=== PATIENT | female | born 1995 | race Caucasian/White ===

== ENCOUNTER 2016-08-18 23:16 | Emergency (ER) | payer OTHER ==
[2016-08-19 00:49] VITALS: TEMP 98; BMI 23.6
[2016-08-19] MEDS ORDERED: SODIUM CHLORIDE 1,000 ML IV STA (01:26)
[2016-08-19] MEDS ORDERED: METOCLOPRAMIDE HCL INJECTION 10 MG/2 ML VIAL IVPB ONE (01:26)
[2016-08-19] MEDS ORDERED: METOCLOPRAMIDE HCL INJECTION 10 MG/2 ML VIAL ONE (01:40)
[2016-08-19 01:44] LABS: BASOPHIL 0.4 % (0-2.0); EOSINOPHIL 1.4 % (0-4.5); MCH 26.3 pg (25.7-33.7); MCHC 34.7 g/dl (32.0-36.0); MEAN CELL VOLUME 75.9 fl (80-96); MEAN PLT VOLUME 6.8 fl (7.5-11.1); NEUTROPHILS 73.1 % (42.8-82.8); PLATELET COUNT 287 K/MM3 (134-434); RDW 16.3 % (11.6-15.6); WHITE BLOOD COUNT 7.8 K/mm3 (4.0-10.0)
[2016-08-19 02:06] LABS: ALBUMIN 3.4 g/dl (3.4-5.0); ANION GAP 11 (8-16); BILIRUBIN,TOTAL 0.3 mg/dL (0.2-1.0); CALCIUM 8.4 mg/dL (8.5-10.1); CO2 24 mmol/L (21-32); CREATININE 0.5 mg/dL (0.55-1.02); GLUCOSE,RANDOM 84 mg/dL (74-106); SGOT/AST 8 U/L (15-37); SGPT/ALT 11 U/L (12-78); TOT PROT 6.9 g/dl (6.4-8.2)
--- NOTE | 2016-08-19 02:12 | PDOC ---
History of Present Illness - General Chief Complaint: Nasal Bleeding Stated Complaint: NASAL BLEEDING/16 WKS Time Seen by Provider: 08/19/16 01:13 History Source: Patient Exam Limitations: No Limitations - History of Present Illness Initial Comments: 08/19/16 02:02 21yo Female patient 15 weeks presents to ED c/o vomiting with epistaxis. Patient went to doctor appointment this morning at Dr. Colon's office for routine check up. She states while waiting to be seen, she began vomiting. After her doctors appointment, patient went home ate around 2pm, and shortly after began vomiting again. She states this time it came out her nose and she began bleeding through her nose. Patient stats symptoms subsided until around 10pm when recurrence of prior symptoms occurred. She denies fever, diarrhea, back pain, abd pain, vaginal bleeding, rectal bleeding or any other complaints at this time. Timing/Duration: 4-6 hours Severity: moderate Modifying Factors: worse with: cold therapy, eating, immobilization, medication , movement, rest, other Associated Symptoms: reports: nausea/vomiting Past History - Travel Traveled outside of the country in the last 30 days: No Close contact w/someone who was outside of country & ill: No - Past Medical History Allergies/Adverse Reactions: Allergies Allergy/AdvReac Type Severity Reaction Status Date / Time No Known Allergies Allergy Verified 08/19/16 00:41 Home Medications: Ambulatory Orders Metoclopramide HCl [Reglan -] 10 mg PO Q8H PRN #30 tablet 08/19/16 - Psycho/Social/Smoking Cessation Hx Suicidal Ideation: No Smoking History: Never smoked Have you smoked in the past 12 months: No Information on smoking cessation initiated: No Hx Alcohol Use: No Drug/Substance Use Hx: No Review of Systems - Review of Systems Able to Perform ROS?: Yes Is the patient limited Greek proficient: No Constitutional: No: Chills, Fever, Malaise, Weakness HEENTM: Yes: Nose Bleeding Respiratory: No: Cough, Stridor, Wheezing Cardiac (ROS): No: Chest Pain, Lightheadedness, Palpitations, Syncope, Chest Tightness ABD/GI: Yes: Nausea, Vomiting. No: Constipated, Diarrhea, Poor Appetite, Poor Fluid Intake, Abdominal cramping : No: Burning, Dysuria, Discharge, Flank Pain, Hematuria Musculoskeletal: No: Back Pain All Other Systems: Reviewed and Negative *Physical Exam - Vital Signs Last Vital Signs Temp Pulse Resp BP Pulse Ox 98.0 F 83 20 112/70 100 08/19/16 00:41 08/19/16 00:41 08/19/16 00:41 08/19/16 00:41 08/19/16 00:41 - Physical Exam General Appearance: Yes: Nourished, Appropriately Dressed. No: Apparent Distress, Mild Distress, Moderate Distress, Severe Distress HEENT: positive: EOMI, FAVIOLA, Normal ENT Inspection, Normal Voice, Symmetrical, TMs Normal, Pharynx Normal. negative: Pharyngeal Erythema, Tonsillar Exudate, Tonsillar Erythema, Nasal Congestion, Rhinorrhea, Sinus Tenderness, TM Bulging, TM Dull, TM Erythema Neck: positive: Trachea midline, Normal Thyroid, Supple. negative: Stridor, Lymphadenopathy (R), Lymphadenopathy (L) Respiratory/Chest: positive: Lungs Clear, Normal Breath Sounds. negative: Respiratory Distress, Accessory Muscle Use, Labored Respiration, Rapid RR, Stridor, Wheezing Cardiovascular: positive: Regular Rhythm, Regular Rate. negative: Edema, JVD, Murmur Gastrointestinal/Abdominal: positive: Normal Bowel Sounds, Soft, Distended (15 weeks ). negative: Guarding, Rebound, Tenderness, Hernia Musculoskeletal: positive: Normal Inspection. negative: CVA Tenderness Extremity: positive: Normal Capillary Refill, Normal Inspection, Normal Range of Motion Integumentary: positive: Normal Color, Dry, Warm Neurologic: positive: director volunteer services II-XII NML intact, Fully Oriented, Alert, Normal Mood/ Affect, Normal Response, Motor Strength /5 ED Treatment Course - LABORATORY CBC & Chemistry Diagram: 08/19/16 01:37 08/19/16 01:37 - ADDITIONAL ORDERS Additional order review: 08/19/16 01:37 RBC 4.08 MCV 75.9 L MCHC 34.7 RDW 16.3 H MPV 6.8 L Neutrophils % 73.1 Lymphocytes % 19.6 Monocytes % 5.5 Eosinophils % 1.4 Basophils % 0.4 - Medications Given in the ED: ED Medications Discontinued Medications Generic Name Dose Route Start Last Admin Trade Name Freq PRN Reason Stop Dose Admin Metoclopramide HCl 10 mg 08/19/16 01:26 08/19/16 01:43 Reglan Injection - IVPB 08/19/16 01:27 10 mg ONCE ONE Administration *DC/Admit/Observation/Transfer Diagnosis at time of Disposition: Dehydration during - Discharge Dispostion Disposition: HOME Condition at time of disposition: Improved Admit: No - Prescriptions Prescriptions: Metoclopramide HCl [Reglan -] 10 mg PO Q8H PRN #30 tablet PRN Reason: Nausea - Patient Instructions Printed Discharge Instructions: DI for Dehydration -- Adult Additional Instructions: FOLLOW UP WITH DR. PÉREZ. CALL TO SCHEDULE APPOINTMENT. TAKE MEDICATIONS PRESCRIBED. START WITH SMALL PORTIONS OF FOOD BUT EAT MORE FREQUENTLY. REMEMBER YOU ARE EATING FOR 2 PEOPLE NOW. Print Language: PASHTO - Post Discharge Activity Work/School Note: Back to Work
[2016-08-19 02:21] LABS: ALK PHOS 63 U/L (45-117)
[2016-08-19 02:31] LABS: URINE APPEARANCE CLEAR; URINE BILIRUBIN NEGATIVE (NEGATIVE); URINE BLOOD NEGATIVE (NEGATIVE); URINE COLOR STRAW; URINE GLUCOSE (UA) NEGATIVE (NEGATIVE); URINE KETONE 1+ (NEGATIVE); URINE LEUK ESTERASE NEGATIVE (NEGATIVE); URINE NITRITE NEGATIVE (NEGATIVE); URINE PROTEIN NEGATIVE (NEGATIVE); URINE UROBILINOGEN NEGATIVE E.U./dl (0.2-1.0)
[2016-08-19 03:14] VITALS: BP 126/76; PULSE 79
== END 2016-08-19 03:18 | disposition home or self-care (01) ==
LOC: JER 23:16
PROC: 3E033GC Introduction of Other Therapeutic Substance into Peripheral Vein, Percutaneous Approach (ICD-10-PCS; principal; 2016-08-18)
PROC: 3E0337Z Introduction of Electrolytic and Water Balance Substance into Peripheral Vein, Percutaneous Approach (ICD-10-PCS; 2016-08-18)
DX: O26.892 Other specified pregnancy related conditions, second trimester (principal); E86.0 Dehydration; Z3A.16 16 weeks gestation of pregnancy
CPT/HCPCS: 36415; 80053; 81003; 84702; 85025; 99283-25

== ENCOUNTER 2017-01-29 19:30 | Inpatient (IN) | payer OTHER ==
[2017-01-29 20:41] LABS: BASOPHIL 0.8 % (0-2.0); EOSINOPHIL 0.5 % (0-4.5); MCH 21.1 pg (25.7-33.7); MCHC 32.2 g/dl (32.0-36.0); MEAN CELL VOLUME 65.7 fl (80-96); NEUTROPHILS 69.4 % (42.8-82.8); PLATELET COUNT 212 K/MM3 (134-434); RDW 16.6 % (11.6-15.6); WHITE BLOOD COUNT 6.6 K/mm3 (4.0-10.0)
[2017-01-29 20:54] LABS: INR 0.92 (0.82-1.09); PROTHROMBIN TIME (PATIENT) 10.1 SEC (9.98-11.88)
[2017-01-29 21:04] LABS: ANION GAP 9 (8-16); CALCIUM 8.2 mg/dL (8.5-10.1); CO2 22 mmol/L (21-32); CREATININE 0.8 mg/dL (0.55-1.02); GLUCOSE,RANDOM 103 mg/dL (74-106)
[2017-01-29 21:11] LABS: ACTIVATED PTT 25.4 SECONDS (26.9-34.4)
[2017-01-29 21:12] VITALS: BMI 28.0
[2017-01-29 21:14] LABS: HYPOCHROMIA 2+; MICROCYTOSIS 1+; OVALOCYTE 1+; PLATELET ESTIMATE ADEQUATE (NORMAL); POIKILOCYTOSIS 1+
[2017-01-29] MEDS ORDERED: oxyCODONE HCL 5 MG TABLET PO PRN (21:31)
[2017-01-29] MEDS ORDERED: BENZOCAINE 20% 57 GM BOTTLE TP PRN (21:31)
[2017-01-29] MEDS ORDERED: BENZOCAINE 28 GM HEMORRHOIDAL OINTMENT PR PRN (21:31)
[2017-01-29] MEDS ORDERED: WITCH HAZEL 50% (TUCKS) 40 PAD/JAR PAD TP PRN (21:31)
[2017-01-29] MEDS ORDERED: IBUPROFEN 800 MG/8 ML IJ IVPB PRN ×2 (21:31→21:49)
[2017-01-29] MEDS ORDERED: METHYLERGONOVINE MALEATE 0.2 MG/1 ML AMP IM PRN (21:31)
[2017-01-29] MEDS ORDERED: diphenhydrAMINE HCL 25 MG CAPSULE (FP) PO PRN (21:31)
--- NOTE | 2017-01-29 21:37 | HP ---
Past Medical History - Primary Care Physician PCP:: Agustín Lehman - Admission Chief Complaint: 37 weeks , vaginal bleeding . placenta abruptio History of Present Illness: 21 yo f edc by sono 02/13/17, c/o abdominal pain and vaginal bleeding since 6 pm today, no rom, no clots, fhr cat 2, vaginal bleeding bright red , with contraction every min , consistant with placenta abruptio, advised stat c/s , rba discussed History Source: Patient Limitations to Obtaining History: No Limitations - Past Medical History ...: 1 ...Para: 0 ...Term: 0 ...: 0 ...Spon : 0 ...Induced : 0 ...Multiple Gestation: 0 ...LMP: 05/09/16 ... Weeks Gestation by Dates: 37.6 ...EDC by Dates: 02/13/17 Heme/Onc: Yes: Anemia - Past Surgical History Hx Myomectomy: No Hx Transabdominal Cerclage: No - Smoking History Smoking history: Never smoked Have you smoked in the past 12 months: No - Alcohol/Substance Use Hx Alcohol Use: No - Social History Usual Living Arrangement: Yes: With Spouse History of Recent Travel: Yes Home Medications - Allergies Allergies/Adverse Reactions: Allergies Allergy/AdvReac Type Severity Reaction Status Date / Time No Known Allergies Allergy Verified 08/19/16 00:41 - Home Medications Home Medications: Ambulatory Orders Ferrous Sulfate [Feosol] 325 mg PO DAILY 01/29/17 Review of Systems - Review of Systems Constitutional: reports: Malaise Eyes: reports: No Symptoms HENT: reports: No Symptoms Neck: reports: No Symptoms Cardiovascular: reports: No Symptoms Respiratory: reports: No Symptoms Genitourinary: reports: Vaginal Bleeding Breasts: reports: No Symptoms Reported Musculoskeletal: reports: No Symptoms Integumentary: reports: No Symptoms Neurological: reports: No Symptoms Endocrine: reports: No Symptoms Hematology/Lymphatic: reports: No Symptoms Psychiatric: reports: No Symptoms Physical Exam - Maternity Vital Signs: Vital Signs Temperature 99.1 F 01/29/17 19:30 Pulse Rate 109 H 01/29/17 19:30 Respiratory Rate 20 01/29/17 19:30 Blood Pressure 130/76 01/29/17 19:30 O2 Sat by Pulse Oximetry (%) Constitutional: Yes: Well Nourished, No Distress, Calm Eyes: Yes: WNL, Conjunctiva Clear, EOM Intact HENT: Yes: WNL, Atraumatic, Normocephalic Neck: Yes: WNL, Supple, Trachea Midline Cardiovascular: Yes: WNL, Regular Rate and Rhythm Breast(s): Yes: WNL - Abdominal Exam/OB Fundal Height: 40 Number of Fetuses: Single Presentation: Vertex Contractions: Yes Intensity: Tetanic Monitor Mode: External Heart Rate Location: [facility] Category: II Decelerations: Variable - Vaginal Exam/OB Vaginal Bleediing: Yes Speculum Exam: No Dilatation (cm): o Effacement (%): 70 Amniotic Membrane Status: Intact Presentation: Vertex/Position Station: -1 - Physical Exam Musculoskeletal: Yes: WNL Extremities: Yes: WNL Edema: LLE: Trace, RLE: Trace Deep Tendon Reflex Grade: Normal +2 Psychiatric: Yes: WNL - Labs Lab Results: CBC, BMP 01/29/17 20:10 01/29/17 20:10 Problem List - Problems (1) with 37 weeks completed gestation Code(s): Z3A.37 - 37 WEEKS GESTATION OF (2) Placenta abruptio, antepartum Code(s): O45.90 - PREMATURE SEPARATION OF PLACENTA, UNSP, UNSP TRIMESTER (3) Vaginal hemorrhage Code(s): N93.9 - ABNORMAL UTERINE AND VAGINAL BLEEDING, UNSPECIFIED (4) Anemia affecting Code(s): O99.019 - ANEMIA COMPLICATING , UNSPECIFIED TRIMESTER Qualifiers: Trimester: third trimester Qualified Code(s): O99.013 - Anemia complicating , third trimester Assessment/Plan stat c/s rba discussed, type and cross 2 units, pt. ptt. fibrinogen, FDP
[2017-01-29] MEDS ORDERED: OXYTOCIN 20 UNITS in 0.9% NS 1,000 ML IV SCH (21:45)
[2017-01-29] MEDS ORDERED: DEXTROSE 5%-LACTATED RINGERS 1,000 ML IV SCH (21:45)
[2017-01-29] MEDS ORDERED: ONDANSETRON 4 MG/2 ML VIAL IVPUSH PRN (21:49)
[2017-01-29 21:56] LABS: ARTERIAL BLD GAS O2 SATURATION 6.8 % (90-98.9); ARTERIAL BLOOD GAS BASE EXCESS -2.1 meq/l (-2-2); ARTERIAL BLOOD GAS HCO3 26.1 meq/L (22-26); ARTERIAL BLOOD GAS PO2 9.8 mmHg (80-100)
[2017-01-29 21:59] LABS: ARTERIAL BLOOD GAS BASE EXCESS -1.3 meq/l (-2-2); ARTERIAL BLOOD GAS HCO3 25.8 meq/L (22-26); ARTERIAL BLOOD GAS PO2 12.6 mmHg (80-100); ARTERIAL BLOOD GAS pH 7.31 (7.35-7.45)
[2017-01-29 22:00] LABS: ARTERIAL BLOOD GAS pH 7.28 (7.35-7.45)
[2017-01-29 22:01] LABS: LPM/O2% CORD BLOOD
[2017-01-29 22:02] LABS: TYPE OF O2 ARTERIAL
[2017-01-29 22:03] LABS: LPM/O2% CORD BLOOD
[2017-01-29 22:04] LABS: ARTERIAL BLD GAS O2 SATURATION 15.6 % (90-98.9); TYPE OF O2 VENOUS
[2017-01-29] MEDS ORDERED: PROMETHAZINE HCL 25 MG/1 ML VIAL IVPUSH PRN (22:18)
[2017-01-30] MEDS ORDERED: ceFAZolin SODIUM 1 GM VIAL ONE ×2 (04:24→12:11)
[2017-01-30] MEDS ORDERED: DEXTROSE 5%-WATER - 50 ML IVPB ONE ×2 (04:24→12:11)
[2017-01-30] MEDS: CEFAZOLIN 1 GM in DEXTROSE 5%-WATER - 50 ML IVPB SCH ×2 (04:26→12:26)
[2017-01-30 07:37] LABS: BASOPHIL 0.3 % (0-2.0); MCH 21.2 pg (25.7-33.7); MCHC 31.8 g/dl (32.0-36.0); MEAN CELL VOLUME 66.7 fl (80-96); MEAN PLT VOLUME 7.8 fl (7.5-11.1); NEUTROPHILS 84.4 % (42.8-82.8); PLATELET COUNT 174 K/MM3 (134-434); RDW 16.7 % (11.6-15.6); WHITE BLOOD COUNT 10.9 K/mm3 (4.0-10.0)
[2017-01-30] MEDS: ENOXAPARIN NA (PORCINE) 40 MG/0.4 ML DISP.SYRIN SQ SCH (09:32)
--- NOTE | 2017-01-30 10:22 | PN ---
Progress Note (short form) - Note Progress Note: Anesthesia post op note. POD#1 . S/P , under spinal with duramorph. Patient seen and examined. VSS no complaints. No apparent post anesthesia complications. Signed off.
[2017-01-30] MEDS: ACETAMINOPHEN 325 MG TABLET (FP) PO PRN ×2 (12:25→21:29)
[2017-01-30] MEDS: SIMETHICONE 80 MG TAB.CHEW (FP) PO PRN ×2 (12:25→21:29)
[2017-01-30] MEDS: IBUPROFEN 600 MG TABLET (FP) PO PRN ×2 (12:26→21:30)
--- NOTE | 2017-01-30 14:15 | PN ---
Progress Note (short form) - Note Progress Note: pod 1 s/p c/s, placenta abruption, anemia no c/o no dizziness , no headache CBC, BMP 01/30/17 07:00 01/29/17 20:10 Last Vital Signs Temp Pulse Resp BP Pulse Ox 99.4 F 82 20 128/78 100 01/30/17 14:00 01/30/17 14:00 01/30/17 14:00 01/30/17 14:00 01/29/17 23:00 abdomen soft, no distension, no cva incision dry, no calf tenderness no active vaginal bleeding . no calf tenderness impression anemia, asymptomatic normal VS ,blood transfusion discussed , will repeat cbc in am , if lower may need transfusion Problem List - Problems (1) with 37 weeks completed gestation Code(s): Z3A.37 - 37 WEEKS GESTATION OF (2) Placenta abruptio, antepartum Code(s): O45.90 - PREMATURE SEPARATION OF PLACENTA, UNSP, UNSP TRIMESTER (3) Vaginal hemorrhage Code(s): N93.9 - ABNORMAL UTERINE AND VAGINAL BLEEDING, UNSPECIFIED (4) Anemia affecting Code(s): O99.019 - ANEMIA COMPLICATING , UNSPECIFIED TRIMESTER Qualifiers: Trimester: third trimester Qualified Code(s): O99.013 - Anemia complicating , third trimester
--- NOTE | 2017-01-30 19:04 | OP ---
DATE OF OPERATION: 01/29/2017 PREOPERATIVE DIAGNOSES: , 37 weeks; vaginal bleeding; placental abruption; fetus at risk. POSTOPERATIVE DIAGNOSIS: , 37 weeks; vaginal bleeding; placental abruption; fetus at risk. PROCEDURE: Primary low-segment transverse section. SURGEON: Gerald Lehman MD MENTAL HEALTH CASE MANAGER: BRIA Vargas ANESTHESIA: Spinal. ANESTHESIOLOGIST: Brayden Esteves MD ESTIMATED BLOOD LOSS INTRAOPERATIVELY: 500 mL. OPERATION: The patient was taken to the operating room under adequate spinal anesthesia. Abdomen and perineum was prepped and draped. Pfannenstiel abdominal skin incision was made, abdominal wall was cut layer by layer until peritoneum was exposed and incised. Upon entering abdominal cavity, lower uterine segment was identified and uterovesical fold of peritoneum established and bladder was pushed down. Then with the lower blade of the Umu retractor in the pelvis, a low transverse uterine incision was made, incision extended laterally. Amniotic sac was entered, which was bloody amniotic fluid noted. Head delivered, nasopharynx was suctioned. Live baby boy was delivered, 9 and 9. Placenta had approximately 25% abruption with retroplacental blood clot was removed. Then the uterine cavity was cleaned of all remaining tissue. Uterine incision was closed in 2 layers, 1st layer with 0 Biosyn continuous suture, the 2nd layer with 0 Biosyn imbricating the 1st layer. Bladder flap was closed with 0 Biosyn continuous suture. Both tubes and ovaries were normal. No active bleeding was seen. Peritoneum was closed with 0 Biosyn continuous suture. Muscles were brought together with interrupted suture of 0 Biosyn. Fascia was closed with 0 Biosyn continuous suture, subcutaneous fat with interrupted suture of 0 Biosyn. The skin was closed with devendra. Patient tolerated procedure well, left the OR in good condition. GERALD LEHMAN M.D. [id number]
[2017-01-30] MEDS ORDERED: BISACODYL 10 MG SUPP.RECT RC PRN (21:31)
[2017-01-31] MEDS: ACETAMINOPHEN 325 MG TABLET (FP) PO PRN ×5 (05:03→23:02)
[2017-01-31] MEDS: SIMETHICONE 80 MG TAB.CHEW (FP) PO PRN ×4 (05:03→23:02)
[2017-01-31] MEDS: IBUPROFEN 600 MG TABLET (FP) PO PRN ×4 (05:03→18:50)
[2017-01-31 07:00] LABS: BASOPHIL 0.6 % (0-2.0); EOSINOPHIL 0.7 % (0-4.5); MCH 21.1 pg (25.7-33.7); MCHC 31.7 g/dl (32.0-36.0); MEAN CELL VOLUME 66.6 fl (80-96); MEAN PLT VOLUME 7.8 fl (7.5-11.1); NEUTROPHILS 69.9 % (42.8-82.8); PLATELET COUNT 184 K/MM3 (134-434); WHITE BLOOD COUNT 7.3 K/mm3 (4.0-10.0)
--- NOTE | 2017-01-31 08:48 | PN ---
Progress Note (short form) - Note Progress Note: pod 2 , severe anemai, has shortness of breath with walking CBC, BMP 01/31/17 05:25 01/29/17 20:10 Last Vital Signs Temp Pulse Resp BP Pulse Ox 98.2 F 95 H 20 133/75 100 01/30/17 22:00 01/30/17 22:00 01/30/17 22:00 01/30/17 22:00 01/29/17 23:00 abdomen soft, BS present, no cva incision dry, clean no calf tenderness no excess vaginal bleeding impression anemia, symptomatic , advised blood transfusion,rba discussed Problem List - Problems (1) with 37 weeks completed gestation Code(s): Z3A.37 - 37 WEEKS GESTATION OF (2) Placenta abruptio, antepartum Code(s): O45.90 - PREMATURE SEPARATION OF PLACENTA, UNSP, UNSP TRIMESTER (3) Vaginal hemorrhage Code(s): N93.9 - ABNORMAL UTERINE AND VAGINAL BLEEDING, UNSPECIFIED (4) Anemia affecting Code(s): O99.019 - ANEMIA COMPLICATING , UNSPECIFIED TRIMESTER Qualifiers: Trimester: third trimester Qualified Code(s): O99.013 - Anemia complicating , third trimester
[2017-01-31] MEDS: ENOXAPARIN NA (PORCINE) 40 MG/0.4 ML DISP.SYRIN SQ SCH (10:31)
[2017-01-31] MEDS: SENNOSIDES/DOCUSATE COMBO (SENNA PLUS) TABLET (UD) PO PRN (21:50)
[2017-01-31] MEDS: oxyCODONE HCL 5 MG TABLET PO PRN (23:01)
[2017-02-01] MEDS: ACETAMINOPHEN 325 MG TABLET (FP) PO PRN ×4 (06:50→21:34)
[2017-02-01] MEDS: SIMETHICONE 80 MG TAB.CHEW (FP) PO PRN ×4 (06:50→21:34)
[2017-02-01] MEDS: oxyCODONE HCL 5 MG TABLET PO PRN ×2 (06:51→12:27)
[2017-02-01 07:33] LABS: BASOPHIL 0.6 % (0-2.0); EOSINOPHIL 1.6 % (0-4.5); MCH 23.9 pg (25.7-33.7); MCHC 33.3 g/dl (32.0-36.0); MEAN CELL VOLUME 71.9 fl (80-96); MEAN PLT VOLUME 7.4 fl (7.5-11.1); NEUTROPHILS 64.2 % (42.8-82.8); PLATELET COUNT 226 K/MM3 (134-434); RDW 21.8 % (11.6-15.6); WHITE BLOOD COUNT 8.4 K/mm3 (4.0-10.0)
[2017-02-01] MEDS: ENOXAPARIN NA (PORCINE) 40 MG/0.4 ML DISP.SYRIN SQ SCH (10:14)
--- NOTE | 2017-02-01 12:30 | PN ---
Progress Note (short form) - Note Progress Note: pod 3 s/p c/s ,abruptio, anemia, s/p blood transfusion no dizziness , feels ok, ambulating CBC, BMP 02/01/17 06:50 01/29/17 20:10 Last Vital Signs Temp Pulse Resp BP Pulse Ox 98.2 F 75 20 128/77 100 02/01/17 07:45 02/01/17 07:45 02/01/17 07:45 02/01/17 07:45 01/29/17 23:00 abdomen soft, no distension, no cva incision clean, healing well no excess vaginal bleeding. no calf tenderness plan ambulate, iron vit ,for d/c home in am Problem List - Problems (1) with 37 weeks completed gestation Code(s): Z3A.37 - 37 WEEKS GESTATION OF (2) Placenta abruptio, antepartum Code(s): O45.90 - PREMATURE SEPARATION OF PLACENTA, UNSP, UNSP TRIMESTER (3) Vaginal hemorrhage Code(s): N93.9 - ABNORMAL UTERINE AND VAGINAL BLEEDING, UNSPECIFIED (4) Anemia affecting Code(s): O99.019 - ANEMIA COMPLICATING , UNSPECIFIED TRIMESTER Qualifiers: Trimester: third trimester Qualified Code(s): O99.013 - Anemia complicating , third trimester
[2017-02-01] MEDS: IBUPROFEN 600 MG TABLET (FP) PO PRN ×2 (16:51→21:34)
[2017-02-01] MEDS: SENNOSIDES/DOCUSATE COMBO (SENNA PLUS) TABLET (UD) PO PRN (21:34)
[2017-02-02] MEDS: SIMETHICONE 80 MG TAB.CHEW (FP) PO PRN (05:18)
[2017-02-02] MEDS: IBUPROFEN 600 MG TABLET (FP) PO PRN (05:18)
[2017-02-02] MEDS: ACETAMINOPHEN 325 MG TABLET (FP) PO PRN (05:19)
--- NOTE | 2017-02-02 06:26 | PN ---
Post Progress Note - Subjective Subjective: c/o pain scale 5/10 c/o BM not done Post Day: 4 Type of Delivery: Primary C/S Vital Signs: Vital Signs Temperature 98.2 F 02/01/17 22:00 Pulse Rate 77 02/01/17 22:00 Respiratory Rate 20 02/01/17 22:00 Blood Pressure 129/89 02/01/17 22:00 O2 Sat by Pulse Oximetry (%) 100 01/29/17 23:00 Breast Exam: Yes: Soft, Other (Breast full, not BF, states will start bF now ). No: Engorged Uterus: Yes: Fundus Firm, Fundus below umbilicus, Non-tender Incision: Yes: Devendra intact. No: Redness, Oozing Abdomen/GI: Yes: Abdomen soft, Passing flatus, Tolerating PO (diet ). No: Abdominal Distention, Tender Lochia: Yes: Rubra Lochia, amount: Moderate Extremities: Yes: Calves non-tender Perineum: Yes: Intact Activity: Ambulating - Labs Labs: CBC WBC 8.4 K/mm3 (4.0-10.0) 02/01/17 06:50 RBC 3.33 M/mm3 (3.60-5.2) L D 02/01/17 06:50 Hgb 8.0 GM/dL (10.7-15.3) L D 02/01/17 06:50 Hct 24.0 % (32.4-45.2) L D 02/01/17 06:50 MCV 71.9 fl (80-96) L 02/01/17 06:50 MCH 23.9 pg (25.7-33.7) L 02/01/17 06:50 MCHC 33.3 g/dl (32.0-36.0) 02/01/17 06:50 RDW 21.8 % (11.6-15.6) H D 02/01/17 06:50 Plt Count 226 K/MM3 (134-434) D 02/01/17 06:50 MPV 7.4 fl (7.5-11.1) L 02/01/17 06:50 Neutrophils % 64.2 % (42.8-82.8) 02/01/17 06:50 Lymphocytes % 28.2 % (8-40) 02/01/17 06:50 Monocytes % 5.4 % (3.8-10.2) 02/01/17 06:50 Eosinophils % 1.6 % (0-4.5) D 02/01/17 06:50 Basophils % 0.6 % (0-2.0) 02/01/17 06:50 Hypochromia 2+ 01/29/17 20:10 Platelet Estimate Adequate (NORMAL) 01/29/17 20:10 Poikilocytosis 1+ 01/29/17 20:10 Microcytosis 1+ 01/29/17 20:10 Ovalocytes 1+ 01/29/17 20:10 Morphology Comment 01/29/17 20:10 Assessment/Plan Anemia , s/p 2 pack cell transfusuion , hemodynamically stable, counselled discharge today will RTC for devendra removal
[2017-02-02 08:12] VITALS: BP 139/87; PULSE 58; TEMP 98.8
[2017-02-02 08:48] LABS: BASOPHIL 0.5 % (0-2.0); EOSINOPHIL 2.3 % (0-4.5); MCHC 33.5 g/dl (32.0-36.0); MEAN CELL VOLUME 71.8 fl (80-96); MEAN PLT VOLUME 6.8 fl (7.5-11.1); NEUTROPHILS 75.9 % (42.8-82.8); PLATELET COUNT 259 K/MM3 (134-434); RDW 22.8 % (11.6-15.6); WHITE BLOOD COUNT 8.9 K/mm3 (4.0-10.0)
[2017-02-02 09:47] LABS: PLATELET ESTIMATE ADEQUATE (NORMAL)
[2017-02-02 09:48] LABS: ANISOCYTOSIS 2+; HYPOCHROMIA 1+; MICROCYTOSIS 1+; POLYCHROMASIA F
[2017-02-02] MEDS: ENOXAPARIN NA (PORCINE) 40 MG/0.4 ML DISP.SYRIN SQ SCH (10:24)
--- NOTE | 2017-02-03 15:50 | PATH ---
Surgical Pathology Report Patient Name: SATHISH RAMIREZ [facility]. Rec. #: [id number] /Age/Gender: 1995 (Age: 21) / F Account: [id number] Location: [facility] OBS/TESTING MANAGER Taken: 01/31/2017 Received: 01/31/2017 Reported: 02/03/2017 Physicians: Agustín Lehman M.D. Specimen(s) Received PLACENTA Clinical History , 37.6 weeks with vaginal bleeding Placental abruption Final Diagnosis PLACENTA, DELIVERY: SMALL (371 GRAM) FOCALLY DISRUPTED THIRD TRIMESTER PLACENTA WITH HEMATOMA, 3 VESSEL UMBILICAL CORD, AND UNREMARKABLE PLACENTAL MEMBRANES. Electronically Signed Noé Bacon M.D. Gross Description The specimen is received fresh labeled placenta and is a 371 gram, 16.0 x 14.0 x 2.5 cm. placenta with attached membranes and umbilical cord. The attached membranes are matthew, translucent with focal opacities and insert marginally. The umbilical cord measures 15 cm. in length and averages 1.4 cm. in diameter. The cord inserts eccentrically, 3 cm. to the nearest margin. No true knots or strictures are identified. Cut surface of the umbilical cord reveals 3 vessels. The surface is torres-blue with minimal fibrin deposition and appropriate caliber vessels. The maternal surface is red-brown with focal defects. Sectioning reveals a 3.4 cm greatest dimension hemorrhagic lesion. The remaining placental parenchyma is red-brown and spongy. Bottling Room Worker sections are submitted in 4 cassettes as follows: 1-membrane roll and umbilical cord; 2-lesion; 7-4-ehmq-thickness sections of placenta. 02/02/2017 [facility]02/02/2017
--- NOTE | 2017-02-04 08:36 | DS ---
Physical Exam-PASTORAL COUNSELOR Vital Signs: Vital Signs Temperature 98.8 F 02/02/17 08:10 Pulse Rate 58 L 02/02/17 08:10 Respiratory Rate 20 02/02/17 08:10 Blood Pressure 139/87 02/02/17 08:10 O2 Sat by Pulse Oximetry (%) 100 01/29/17 23:00 Constitutional: Yes: Well Nourished, No Distress, Calm Eyes: Yes: WNL, Conjunctiva Clear, EOM Intact HENT: Yes: WNL, Atraumatic, Normocephalic Neck: Yes: WNL, Supple, Trachea Midline Cardiovascular: Yes: WNL, Regular Rate and Rhythm Respiratory: Yes: WNL, Regular, CTA Bilaterally Gastrointestinal: Yes: WNL ...Rectal Exam: Yes: WNL Renal/: Yes: WNL ....Post : Yes: Uterus firm, Uterus non-tender, Slight lochia rubra Breast(s): Yes: WNL Musculoskeletal: Yes: WNL Extremities: Yes: WNL Edema: No Integumentary: Yes: WNL Wound/Incision: Yes: Clean/Dry, Well Approximated, [place]enton Intact Neurological: Yes: WNL, Alert, Oriented ...Motor Strength: WNL Psychiatric: Yes: WNL, Alert, Oriented Labs: CBC, BMP 02/02/17 08:35 01/29/17 20:10 Delivery - Delivery Section: Primary, Low Flap Transverse (no complication) Type of Anesthesia: Spinal Episiotomy/Laceration: None EBL (cc): 500 Delivery, Single - Stages of Labor Date 1st Stage Initiatied: 01/29/17 Time 1st Stage Initiated: 19:10 Date of Delivery: 01/29/17 Time of Delivery: 21:07 Time Placenta Delivered: 21:08 Placenta: Yes: Expressed - Condition of Food Safety Officer/Power Brake Rebuilder Present: Yes Name: Edith Walker Infant Gender: Male Weight: 6 lb Position: Right, OT Total Hours ROM (Hrs/Mins): 1 minute - 1 Minute Total Score: 9 5 Minutes Total Score: 9 - [place] Feeding Plan Initial Plan: Elected not to breastfeed exclusively throughout hospitalization Discharge Summary Reason For Visit: LABOR ADMIT Other Procedures: primary LST c/s Condition: Good - Instructions Diet, Activity, Other Instructions: Discharge Instructions * Out of Bed * * Regular Diet, High iron Diet , High protein diet * Continue vitamins daily & iron po daily twice a day * Fang Care * Avoid sex for 6 weeks * RTC for devendra removal with Dr Lehman If you experience excessive bleeding or fever over 101 degrees, call doctor, the clinic or go to the Emergency Room. return to clinic on 02/03/17 for devendra removal and 6 weeks for check. call [facility] for appointment. [phone]. Disposition: HOME - Home Medications Comprehensive Discharge Medication List: Ambulatory Orders Ferrous Sulfate [Feosol] 325 mg PO DAILY 01/29/17 Acetaminophen [Tylenol .Regular Strength -] 650 mg PO Q4H PRN #0 tablet Ibuprofen [Motrin -] 600 mg PO Q4H PRN #30 tablet 02/02/17
== END 2017-02-02 10:55 | disposition home or self-care (01) | DRG 560 ==
LOC: JLDR 19:30 → J3W 01-30 00:07
PROVIDERS: ADMIT Obstetrics & Gynecology; ATTEND Obstetrics & Gynecology
PROC: 10E0XZZ Delivery of Products of Conception, External Approach (ICD-10-PCS; principal; 2017-01-29)
PROC: 30233N1 Transfusion of Nonautologous Red Blood Cells into Peripheral Vein, Percutaneous Approach (ICD-10-PCS; 2017-01-31)
DX: O45.8X3 Other premature separation of placenta, third trimester (principal); O99.02 Anemia complicating childbirth; D64.89 Other specified anemias; O67.8 Other intrapartum hemorrhage; Z3A.37 37 weeks gestation of pregnancy; Z37.0 Single live birth
CPT/HCPCS: 36415; 36430; 36600; 80048; 82803; 85025; 85362; 85384; 85610; 85730; 86593; 86850; 86900; 86901; 86922; 88307-TC; P9038; P9058

== ENCOUNTER 2017-06-03 09:14 | Emergency (ER) | payer OTHER ==
[2017-06-03 09:23] VITALS: BP 117/73; PULSE 88; TEMP 98.1; BMI 23.8
[2017-06-03] MEDS ORDERED: CYCLOBENZAPRINE HCL 10 MG TABLET (FP) PO ONE (09:48)
[2017-06-03] MEDS ORDERED: KETOROLAC TROMETHAMINE 60 MG/2 ML VIAL IM ONE (09:48)
[2017-06-03] MEDS ORDERED: CYCLOBENZAPRINE HCL 10 MG TABLET (FP) ONE (09:50)
[2017-06-03] MEDS ORDERED: KETOROLAC TROMETHAMINE 60 MG/2 ML VIAL ONE (09:50)
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
== END 2017-06-03 10:05 | disposition home or self-care (01) ==
LOC: JERFT 09:14
PROC: 3E0233Z Introduction of Anti-inflammatory into Muscle, Percutaneous Approach (ICD-10-PCS; principal; 2017-06-03)
DX: S16.1XXA Strain of muscle, fascia and tendon at neck level, initial encounter (principal); V43.52XA Car driver injured in collision with other type car in traffic accident, initial encounter; Y92.414 Local residential or business street as the place of occurrence of the external cause; Y93.89 Activity, other specified; Y99.8 Other external cause status
CPT/HCPCS: 99281-25

== ENCOUNTER 2017-06-12 09:32 | Emergency (ER) | payer OTHER ==
[2017-06-12 09:44] VITALS: BP 117/70; PULSE 115; TEMP 98.7; BMI 24.5
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
== END 2017-06-12 11:29 | disposition home or self-care (01) ==
LOC: JERFT 09:32
DX: M62.830 Muscle spasm of back (principal); V49.49XD Driver injured in collision with other motor vehicles in traffic accident, subsequent encounter
CPT/HCPCS: 72100-TC; 84703; 99281-25

== ENCOUNTER 2021-04-20 09:37 | Emergency (ER) | payer OTHER ==
[2021-04-20 09:55] VITALS: BP 108/73; PULSE 86; TEMP 97.2; BMI 31.1
[2021-04-20] MEDS ORDERED: SODIUM CHLORIDE 1,000 ML IV STA (11:21)
[2021-04-20] MEDS ORDERED: ONDANSETRON 4 MG/2 ML VIAL IVPUSH ONE (11:21)
[2021-04-20] MEDS ORDERED: ONDANSETRON 4 MG/2 ML VIAL ONE ×2 (12:00→12:30)
[2021-04-20 12:16] LABS: BASO % 1.1 % (0-2.0); EOS % 1.4 % (0-4.5); HEMATOCRIT 37.1 % (32.4-45.2); HEMOGLOBIN 12.6 GM/dL (10.7-15.3); LYMPH % 29.9 % (8-40); MCH 25.8 pg (25.7-33.7); MEAN PLT VOLUME 7.1 fl (7.5-11.1); MONO % 5.7 % (3.8-10.2); NEUT % 61.9 % (42.8-82.8); PLATELET COUNT 396 10^3/uL (134-434); RBC 4.88 M/mm3 (3.60-5.2); RDW 14.4 % (11.6-15.6); WHITE BLOOD COUNT 5.8 K/mm3 (4.0-10.0)
[2021-04-20 12:20] LABS: EPI CELLS 4 /uL (0-25.1); HYALINE CASTS 1 /uL (0-3.1); URINE APPEARANCE CLEAR; URINE BACTERIA 104 /uL (0-1359); URINE BILIRUBIN NEGATIVE (NEGATIVE); URINE COLOR YELLOW; URINE GLUCOSE (UA) NEGATIVE (NEGATIVE); URINE KETONE NEGATIVE (NEGATIVE); URINE LEUK ESTERASE NEGATIVE (NEGATIVE); URINE NITRITE NEGATIVE (NEGATIVE); URINE PROTEIN NEGATIVE (NEGATIVE); URINE RBC 6 /uL (0-23.9); URINE UROBILINOGEN 0.2 mg/dL (0.2-1.0); URINE WBC 4 /uL (0-25.8)
[2021-04-20 12:21] LABS: HCG,QUALITATIVE URINE Negative
[2021-04-20 12:36] LABS: BLOOD UREA NITROGEN 10.8 mg/dL (7-18); CALCIUM 9.1 mg/dL (8.5-10.1)
[2021-04-20 12:37] LABS: ALBUMIN 3.6 g/dl (3.4-5.0)
[2021-04-20 12:39] LABS: CREATININE 0.7 mg/dL (0.55-1.3)
[2021-04-20 12:41] LABS: BILIRUBIN,TOTAL 0.3 mg/dL (0.2-1); TOT PROT 8.4 g/dl (6.4-8.2)
== END 2021-04-20 15:49 | disposition home or self-care (01) ==
LOC: JER 09:37
PROC: 3E033GC Introduction of Other Therapeutic Substance into Peripheral Vein, Percutaneous Approach (ICD-10-PCS; principal; 2021-04-20)
PROC: 3E0337Z Introduction of Electrolytic and Water Balance Substance into Peripheral Vein, Percutaneous Approach (ICD-10-PCS; 2021-04-20)
DX: R10.9 Unspecified abdominal pain (principal)
CPT/HCPCS: 36415; 76830-TC; 80053; 81003; 83690; 84703; 85025; 86850; 86900; 86901; 87086; 87491; 87591; 99284-25

== ENCOUNTER 2023-08-20 01:10 | Emergency (ER) | payer OTHER ==
[2023-08-20 01:26] VITALS: BP 123/81; PULSE 129; RESP 18; TEMP 98; BMI 34.7
== END 2023-08-20 01:50 | disposition left against medical advice (07) ==
LOC: JER 01:10
DX: R11.2 Nausea with vomiting, unspecified (principal); R10.9 Unspecified abdominal pain
CPT/HCPCS: 99281-25